=== PATIENT | female | born 1995 | race African-American/Black ===

== ENCOUNTER 2020-04-04 07:03 | Inpatient (IN) | payer MEDICAID ==
[2020-04-04] MEDS ORDERED: RINGERS SOLUTION,LACTATED 1,000 ML IV PRN (07:26)
[2020-04-04] MEDS ORDERED: OXYTOCIN/0.9 % SODIUM CHLORIDE 30 UNIT/500 ML RTUINJ IV PRN (07:31)
[2020-04-04] MEDS ORDERED: LIDOCAINE 1% INJ-PF (10 MG/ML) 30 ML SDV ONE (08:21)
[2020-04-04] MEDS ORDERED: OXYTOCIN/0.9 % SODIUM CHLORIDE 30 UNIT/500 ML RTUINJ ONE (08:21)
[2020-04-04] MEDS ORDERED: MISOPROSTOL 0.2 MG TABLET ONE (08:21)
[2020-04-04] MEDS ORDERED: OXYTOCIN 10 UNIT/ML VIAL ONE (08:21)
[2020-04-04] MEDS ORDERED: PENICILLIN G-K 5 MILLION UNIT VIAL ONE (08:28)
[2020-04-04] MEDS ORDERED: PENICILLIN G POTASSIUM 5,000,000 UNIT in DEXTROSE 5%-WATER 100 ML IV ONE (08:30)
[2020-04-04 08:32] LABS: ABSOLUTE EOSINOPHILS # (AUTO) 0.1 10^3/uL (0.0-0.6); ABSOLUTE LYMPHOCYTES (AUTO) 2.1 10^3/uL (0.5-4.7); ABSOLUTE MONOCYTES (AUTO) 0.8 10^3/uL (0.1-1.4); ABSOLUTE NEUT (AUTO) 7.1 10^3/uL (1.7-8.2); BASOPHILS % (AUTO) 0.4 % (0-2); EOSINOPHILS % (AUTO) 0.7 % (0-6); HEMATOCRIT 32.2 % (36.0-47.0); HEMOGLOBIN 11.1 g/dL (12.0-15.5); MEAN CORPUSCULAR HEMOGLOBIN 29.7 pg (27.0-33.4); MEAN CORPUSCULAR HGB CONC 34.5 g/dL (32.0-36.0); MEAN CORPUSCULAR VOLUME 86 fl (80-97); MONOCYTES % (AUTO) 7.6 % (3-13); PLATELET COUNT 151 10^3/uL (150-450); RED BLOOD COUNT 3.74 10^6/uL (3.72-5.28); SEGMENTED NEUTROPHILS % (AUTO) 70.3 % (42-78); TOTAL CELLS COUNTED % (AUTO) 100 %; WHITE BLOOD COUNT 10.1 10^3/uL (4.0-10.5)
[2020-04-04 08:33] LABS: APPEARANCE,URINE CLEAR; BILIRUBIN,URINE NEGATIVE (NEGATIVE); COLOR,URINE STRAW; GLUCOSE, URINE NEGATIVE (NEGATIVE); KETONES,URINE NEGATIVE (NEGATIVE); LEUKOCYTE ESTERASE,URINE NEGATIVE (NEGATIVE); NITRITE,URINE NEGATIVE (NEGATIVE); PROTEIN,URINE NEGATIVE (NEGATIVE); URINE SPECIFIC GRAVITY 1.006; UROBILINOGEN,URINE NEGATIVE mg/dL (<2.0)
[2020-04-04 08:51] LABS: URINE AMPHETAMINES SCREEN NEGATIVE; URINE BARBITURATES SCREEN NEGATIVE; URINE BENZODIAZEPINES SCREEN NEGATIVE; URINE COCAINE SCREEN NEGATIVE; URINE MARIJUANA (THC) SCREEN NEGATIVE; URINE METHADONE SCREEN NEGATIVE; URINE PHENCYCLIDINE SCREEN NEGATIVE
--- NOTE | 2020-04-04 09:03 | Non Stress Test Report ---
Non Stress Test Datetime Report Generated by CPN: 04/04/2020 09:02 DEMOGRAPHIC EGA NST: 38.2 VITAL SIGNS Temperature - NST: 97.5 Pulse - NST: 88 RESP - NST: 17 NBPSYS NST: 136 NBPDIA NST: 82 MONITORING Monitor Explained: Monitor Explained; Test Explained; Patient Verbalized Understanding Time on Monitor: 04/04/2020 08:00 Time off Monitor: 04/04/2020 08:30 NST Duration: 30 NST INTERVENTIONS NST Interventions: None Physician Notified NST: K. Brumfield, CNM BABY A: [id number] BABY A Movement : Present Contraction Frequency : x1 FHR Baseline : 125 Accelerations : 15X15 Decelerations : None Variability : Moderate 6-25bpm NST Review: Meets Criteria for Reactive NST NST Review and Verified By : Patricia Camp RNC NST Results: Reactive NST REPORT Report Trigger: Send Report
[2020-04-04 09:14] LABS: ALBUMIN 3.2 g/dL (3.5-5.0); ALKALINE PHOSPHATASE 158 U/L (38-126); ANION GAP 12 (5-19); ASPARTATE AMINO TRANSFERASE 22 U/L (14-36); BILIRUBIN,DIRECT 0.2 mg/dL (0.0-0.4); BILIRUBIN,TOTAL 0.9 mg/dL (0.2-1.3); BLOOD UREA NITROGEN 8 mg/dL (7-20); CALCIUM 8.9 mg/dL (8.4-10.2); CARBON DIOXIDE 15 mmol/L (22-30); CHLORIDE 108 mmol/L (98-107); GLUCOSE 146 mg/dL (75-110); TOTAL PROTEIN 6.5 g/dL (6.3-8.2)
[2020-04-04 10:40] LABS: UR PRO/CREAT RATIO RESULT 0.4 mg/mg (0.0-0.2); URINE PROTEIN 13.1 mg/dL (<12)
[2020-04-04] MEDS ORDERED: PENICILLIN G POTASSIUM 2,500,000 UNIT in DEXTROSE 5%-WATER 50 ML IV SCH (12:30)
--- NOTE | 2020-05-09 10:55 | PDOC PROGRESS REPORT ---
Subjective-OB Progress Note for:: 04/04/20 - Pt here for NST Physical Exam (OB) - General General Appearance: Appears well, Alert In distress: None - Maternal Morbidity 59. Maternal Morbidity (serious complications experinced by the mother associated with labor and delivery: None of the above Objective-Diagnostic Laboratory: 04/04/20 07:50 04/04/20 07:50 Assessment and Plan(PN) - Assessment and Plan (1) NST (non-stress test) reactive Is this a current diagnosis for this admission?: Yes Plan:: d/c home. F/up with [facility] - Time Spent with Patient Time with patient: Less than 15 minutes Medications reviewed and adjusted accordingly: No - Disposition Anticipated Discharge Disposition: Home, Self Care Anticipated Discharge Timeframe: within 24 hours
--- NOTE | 2020-05-12 15:01 | PDOC DISCHARGE SUMMARY ---
Impression - Admit/DC Date/PCP Admission Date/Primary Care Provider: 04/04/20 07:03 GARETT NOVAK MD Discharge Date: 04/04/20 - Discharge Diagnosis (1) Gestational [-induced] hypertension without significant proteinuria, complicating childbirth Is this a current diagnosis for this admission?: Yes - Assessment Summary: BPs in mild range, no significant protein in urine, rec del 39th wk unless pre E, pt sent home with 24*urine to return - Additional Information Resuscitation Status: Full Code Discharge Diet: Regular Discharge Activity: Balance Activity w/Rest Referrals: GARETT NOVAK MD [Primary Care Provider] - Home Medications: Prenat 115/Iron Fum/Folic/Dss [ 19 Tablet] 1 each PO DAILY 04/04/20 Ibuprofen [Motrin 800 mg Tablet] 800 mg PO Q8 #60 tablet 04/08/20 History of Present Illiness History of Present Illness: KEN CEJA is a 25 year old female Results Laboratory Results: WBC 10.1 10^3/uL (4.0-10.5) 04/04/20 07:50 RBC 3.74 10^6/uL (3.72-5.28) 04/04/20 07:50 Hgb 11.1 g/dL (12.0-15.5) L 04/04/20 07:50 Hct 32.2 % (36.0-47.0) L 04/04/20 07:50 MCV 86 fl (80-97) 04/04/20 07:50 MCH 29.7 pg (27.0-33.4) 04/04/20 07:50 MCHC 34.5 g/dL (32.0-36.0) 04/04/20 07:50 RDW 16.0 % (11.5-14.0) H 04/04/20 07:50 Plt Count 151 10^3/uL (150-450) 04/04/20 07:50 Lymph % (Auto) 21.0 % (13-45) 04/04/20 07:50 [place] % (Auto) 7.6 % (3-13) 04/04/20 07:50 Eos % (Auto) 0.7 % (0-6) 04/04/20 07:50 Baso % (Auto) 0.4 % (0-2) 04/04/20 07:50 Absolute Neuts (auto) 7.1 10^3/uL (1.7-8.2) 04/04/20 07:50 Absolute Lymphs (auto) 2.1 10^3/uL (0.5-4.7) 04/04/20 07:50 Absolute Monos (auto) 0.8 10^3/uL (0.1-1.4) 04/04/20 07:50 Absolute Eos (auto) 0.1 10^3/uL (0.0-0.6) 04/04/20 07:50 Absolute Basos (auto) 0.0 10^3/uL (0.0-0.2) 04/04/20 07:50 Seg Neutrophils % 70.3 % (42-78) 04/04/20 07:50 Sodium 134.9 mmol/L (137-145) L 04/04/20 07:50 Potassium 4.0 mmol/L (3.6-5.0) 04/04/20 07:50 Chloride 108 mmol/L (98-107) H 04/04/20 07:50 Carbon Dioxide 15 mmol/L (22-30) L 04/04/20 07:50 Anion Gap 12 (5-19) 04/04/20 07:50 BUN 8 mg/dL (7-20) 04/04/20 07:50 Creatinine 0.64 mg/dL (0.52-1.25) 04/04/20 07:50 Est GFR ( Amer) > 60 (>60) 04/04/20 07:50 Est GFR (MDRD) Non-Af > 60 (>60) 04/04/20 07:50 Glucose 146 mg/dL (75-110) H 04/04/20 07:50 Uric Acid 7.0 mg/dL (2.5-6.2) H 04/04/20 07:50 Calcium 8.9 mg/dL (8.4-10.2) 04/04/20 07:50 Total Bilirubin 0.9 mg/dL (0.2-1.3) 04/04/20 07:50 Direct Bilirubin 0.2 mg/dL (0.0-0.4) 04/04/20 07:50 Neonat Total Bilirubin Not Reportable 04/04/20 07:50 Neonat Direct Bilirubin Not Reportable 04/04/20 07:50 Neonat Indirect Bili Not Reportable 04/04/20 07:50 AST 22 U/L (14-36) 04/04/20 07:50 ALT 11 U/L (<35) 04/04/20 07:50 Alkaline Phosphatase 158 U/L (38-126) H 04/04/20 07:50 Lactate Dehydrogenase 202 U/L (120-246) 04/04/20 07:50 Total Protein 6.5 g/dL (6.3-8.2) 04/04/20 07:50 Albumin 3.2 g/dL (3.5-5.0) L 04/04/20 07:50 Urine Color STRAW 04/04/20 07:35 Urine Appearance CLEAR 04/04/20 07:35 Urine pH 6.0 (5.0-9.0) 04/04/20 07:35 Ur Specific [place] 1.006 04/04/20 07:35 Urine Protein NEGATIVE mg/dL (NEGATIVE) 04/04/20 07:35 Urine Glucose (UA) NEGATIVE mg/dL (NEGATIVE) 04/04/20 07:35 Urine Ketones NEGATIVE mg/dL (NEGATIVE) 04/04/20 07:35 Urine Blood NEGATIVE (NEGATIVE) 04/04/20 07:35 Urine Nitrite NEGATIVE (NEGATIVE) 04/04/20 07:35 Urine Bilirubin NEGATIVE (NEGATIVE) 04/04/20 07:35 Urine Urobilinogen NEGATIVE mg/dL (<2.0) 04/04/20 07:35 Ur Leukocyte Esterase NEGATIVE (NEGATIVE) 04/04/20 07:35 Urine Creatinine 33.0 mg/dL (16-327) 04/04/20 09:30 Protein/Creatinin Ratio 0.4 mg/mg (0.0-0.2) H 04/04/20 09:30 Urine Total Protein 13.1 mg/dL (<12) H 04/04/20 09:30 Urine Ascorbic Acid NEGATIVE (NEGATIVE) 04/04/20 07:35 Urine Opiates Screen NEGATIVE 04/04/20 07:35 Urine Methadone Screen NEGATIVE 04/04/20 07:35 Ur Barbiturates Screen NEGATIVE 04/04/20 07:35 Ur Phencyclidine Scrn NEGATIVE 04/04/20 07:35 Ur Amphetamines Screen NEGATIVE 04/04/20 07:35 U Benzodiazepines Scrn NEGATIVE 04/04/20 07:35 Urine Cocaine Screen NEGATIVE 04/04/20 07:35 U Marijuana (THC) Screen NEGATIVE 04/04/20 07:35 RPR NONREACTIVE (NONREACTIVE) 04/04/20 07:50 Blood Type B POSITIVE 04/04/20 07:50 Antibody Screen NEGATIVE 04/04/20 07:50 Plan Plan of Treatment: f/u with 24Hr urine, induce labor if protein elevated Stroke Is this a Stroke Patient?: No Acute Heart Failure Is this a Heart Failure Patient?: No
== END 2020-04-04 11:23 | disposition home or self-care (01) | DRG 833 ==
LOC: LR 07:03
PROVIDERS: ADMIT Obstetrics & Gynecology; ATTEND Obstetrics & Gynecology
DX: O24.419 Gestational diabetes mellitus in pregnancy, unspecified control (principal); Z3A.38 38 weeks gestation of pregnancy
CPT/HCPCS: 36415; 80053; 80307; 81005; 82570; 83615; 84156; 84550; 85025; 86592; 86850; 86900; 86901; J2540; J2590; J3490; J7060

== ENCOUNTER 2020-04-05 13:17 | Inpatient (IN) | payer MEDICAID ==
[2020-04-05 15:06] LABS: 24 HOUR URINE PROTEIN RESULT 469 mg/day (42-225); URINE PROTEIN 11.5 mg/dL (<12)
[2020-04-05] MEDS ORDERED: PENICILLIN G POTASSIUM 5,000,000 UNIT in DEXTROSE 5%-WATER 100 ML IV ONE (16:18)
[2020-04-05] MEDS ORDERED: MISOPROSTOL 0.1 MG TABLET PV ONE (16:21)
[2020-04-05] MEDS ORDERED: OXYTOCIN/0.9 % SODIUM CHLORIDE 30 UNIT/500 ML RTUINJ IV PRN (16:41)
--- NOTE | 2020-04-05 16:50 | Admission Physical ---
Datetime Report Generated by CPN: 04/05/2020 16:50 CURRENT ADMISSION Chief Complaint: Other Chief Complaint Other: pt back for 24h urine result Indication for Induction: PreEclampsia Admit Impression : Term, Intrauterine Admit Plan: Admit to Unit; Initiate Labor Induction Protocol ALLERGIES Medication Allergies: No Medication Allergies: No Known Allergies (04/04/2020) Latex: No Latex Allergies OBSTETRICAL HISTORY EDC: 04/16/2020 00:00 : 2 Para: 1 Term: 1 : 0 SAB: 0 IAB: 0 Ectopic: 0 Livin Cesareans: 0 VBACs: 0 Multiple Births: 0 Gestational Diabetes: No Rh Sensitization: No Incompetent Cervix: No DIANN: No Infertility: No ART Treatment: No Uterine Anomaly: No IUGR: No Hx Previous C/S: No Macrosomia: No Hx Loss/Stillborn: No PIH: Yes Hx : No Placenta Previa/Abruption: No Depression/PP Depression: No PTL/PROM: No Post Hemorrhage: No Current Procedures: Ultrasound; NST Obstetrical History Comments: G1 - 04/21/2016 - Full Term G2 - Current SEE RECORDS Alcohol: No Marijuana : No Cocaine: No Other Illicit Drugs: No Cigarettes: Never Smoker. [id number] MEDICAL HISTORY Diabetes: No Blood Transfusion: No Pulmonary Disease (Asthma, TB): No Breast Disease: No Hypertension: No Avionics Installer Surgery: No Heart Disease: No Hosp/Surgery: No Autoimmune Disorder: No Anesthetic Complications: No Kidney Disease: No Abnormal Pap Smear: No Neuro/Epilepsy: No Psychiatric Disorders: No Other Medical Diseases: No Hepatitis/Liver Disease: No Significant Family History: No Varicosities/Phlebitis: No Trauma/Violence : No Thyroid Dysfunction: No INFECTIOUS HISTORY Gonorrhea: No Genital Herpes: No Chlamydia: No Tuberculosis: No Syphilis: No Hepatitis: No HIV/AIDS Exposure: No Rash or Viral Illness: No HPV: No PHYSICAL EXAM General: Normal HEENT: Normal Neurologic: Normal Thyroid: Deferred Heart: Normal Lungs: Normal Breast: Deferred Back: Normal Abdomen: Normal Genitourinary Exam: Normal Extremities: Normal DTRs: Deferred Pelvic Type: Adequate Physical Exam Comments: pelvis proven to 7#10 Vital Signs: Reviewed Details Vital Signs: mild range elevated BPs VAGINAL EXAM Dilatation: 3 Effacement: 40 Station: -2 Contraction Comments: rare MEMBRANES Pooling: Negative Membranes: Intact FETUS A EGA: 38.3 Monitoring: External US FHR- Baseline: 130 Variability: Moderate 6-25bpm Accelerations: 15X15 Decelerations: None FHR Category: Category I Estimated Weight (gm): 3200 Presentation: Vertex Admit Comment: at 38w3d returned for 24h urine [id number] with elevated BPs, previous 24h urine, in October was 252. hx hsv with no outbreak for months. speculum exam neg, taking valtrex 1gm daily with no prodromal sx. CHTN, GBS pos; P: admit, penicillin for GBS prophylaxis, pitocin, anticipate PLANS FOR LABOR AND DELIVERY Labor and Delivery: None Pain Management: Natural; Medications Feeding Preference: Breast Benefit of Breast Feed Discussed: Yes Circumcision: Yes INFORMED CONSENT Assignment: Kathy Hurtado MD Signature: with User ID: [email or web address] : with User ID: [email or web address]
[2020-04-05] MEDS: RINGERS SOLUTION,LACTATED 1,000 ML IV PRN (17:40)
[2020-04-05 18:02] LABS: ABSOLUTE EOSINOPHILS # (AUTO) 0.1 10^3/uL (0.0-0.6); ABSOLUTE LYMPHOCYTES (AUTO) 1.7 10^3/uL (0.5-4.7); ABSOLUTE MONOCYTES (AUTO) 0.6 10^3/uL (0.1-1.4); ABSOLUTE NEUT (AUTO) 5.9 10^3/uL (1.7-8.2); BASOPHILS % (AUTO) 0.6 % (0-2); EOSINOPHILS % (AUTO) 0.6 % (0-6); HEMATOCRIT 34.8 % (36.0-47.0); HEMOGLOBIN 11.6 g/dL (12.0-15.5); LYMPHOCYTES % (AUTO) 20.8 % (13-45); MEAN CORPUSCULAR HEMOGLOBIN 28.8 pg (27.0-33.4); MEAN CORPUSCULAR HGB CONC 33.2 g/dL (32.0-36.0); MEAN CORPUSCULAR VOLUME 87 fl (80-97); MONOCYTES % (AUTO) 7.3 % (3-13); PLATELET COUNT 137 10^3/uL (150-450); RED BLOOD COUNT 4.03 10^6/uL (3.72-5.28); RED CELL DISTRIBUTION WIDTH 16.1 % (11.5-14.0); SEGMENTED NEUTROPHILS % (AUTO) 70.7 % (42-78); TOTAL CELLS COUNTED % (AUTO) 100 %; WHITE BLOOD COUNT 8.4 10^3/uL (4.0-10.5)
[2020-04-05] MEDS ORDERED: OXYTOCIN 10 UNIT/ML VIAL ONE (18:13)
[2020-04-05] MEDS ORDERED: OXYTOCIN/0.9 % SODIUM CHLORIDE 30 UNIT/500 ML RTUINJ ONE (18:13)
[2020-04-05] MEDS ORDERED: PENICILLIN G-K 5 MILLION UNIT VIAL ONE ×2 (18:13→23:39)
[2020-04-05] MEDS ORDERED: LIDOCAINE 1% INJ-PF (10 MG/ML) 30 ML SDV ONE (18:13)
[2020-04-05] MEDS ORDERED: MISOPROSTOL 0.2 MG TABLET ONE (18:13)
[2020-04-05 18:22] LABS: ALBUMIN 3.2 g/dL (3.5-5.0); ALKALINE PHOSPHATASE 171 U/L (38-126); ANION GAP 6 (5-19); ASPARTATE AMINO TRANSFERASE 21 U/L (14-36); BILIRUBIN,TOTAL 0.7 mg/dL (0.2-1.3); BLOOD UREA NITROGEN 5 mg/dL (7-20); CALCIUM 8.9 mg/dL (8.4-10.2); CARBON DIOXIDE 19 mmol/L (22-30); CHLORIDE 110 mmol/L (98-107); GLUCOSE 82 mg/dL (75-110); POTASSIUM 4.3 mmol/L (3.6-5.0); TOTAL PROTEIN 6.9 g/dL (6.3-8.2); URIC ACID 7.1 mg/dL (2.5-6.2)
[2020-04-05] MEDS ORDERED: LABETALOL HCL INJ 20 MG/4 ML DISP.SYRIN IV ONE ×2 (20:00→20:06)
[2020-04-05] MEDS: PENICILLIN G POTASSIUM 2,500,000 UNIT in DEXTROSE 5%-WATER 50 ML IV SCH (23:44)
[2020-04-06] MEDS ORDERED: PENICILLIN G-K 5 MILLION UNIT VIAL ONE ×2 (03:06→06:45)
[2020-04-06] MEDS: PENICILLIN G POTASSIUM 2,500,000 UNIT in DEXTROSE 5%-WATER 50 ML IV SCH ×3 (03:11→14:36)
[2020-04-06] MEDS: RINGERS SOLUTION,LACTATED 1,000 ML IV PRN (03:12)
[2020-04-06] MEDS ORDERED: FENTANYL CITRATE INJ/PF 100 MCG/2 ML AMPUL ONE (10:15)
[2020-04-06] MEDS ORDERED: FENTANYL CITRATE INJ/PF 100 MCG/2 ML AMPUL IV ONE (10:18)
[2020-04-06] MEDS ORDERED: EPHEDRINE SULFATE INJ 50 MG/1 ML AMPULE ONE (11:48)
[2020-04-06] MEDS ORDERED: FENTANYL/BUPIVACAINE/NS/PF 300 MCG/150 ML RTUINJ EPI ONE (11:49)
[2020-04-06] MEDS ORDERED: ROPIVACAINE HCL 0.2% INJ/PF (2 MG/ML) 20 ML SDV ONE (11:49)
[2020-04-06 12:21] LABS: HEMATOCRIT 32.9 % (36.0-47.0); HEMOGLOBIN 11.3 g/dL (12.0-15.5); MEAN CORPUSCULAR HEMOGLOBIN 29.5 pg (27.0-33.4); MEAN CORPUSCULAR HGB CONC 34.3 g/dL (32.0-36.0); MEAN CORPUSCULAR VOLUME 86 fl (80-97); PLATELET COUNT 130 10^3/uL (150-450); RED BLOOD COUNT 3.83 10^6/uL (3.72-5.28); RED CELL DISTRIBUTION WIDTH 15.9 % (11.5-14.0); WHITE BLOOD COUNT 9.7 10^3/uL (4.0-10.5)
[2020-04-06] MEDS ORDERED: OXYTOCIN/0.9 % SODIUM CHLORIDE 30 UNIT/500 ML RTUINJ IV PRN (13:50)
[2020-04-06] MEDS ORDERED: ACETAMINOPHEN WITH CODEINE #3 TABLET PO PRN (13:50)
[2020-04-06] MEDS ORDERED: PSEUDOEPHEDRINE HCL 30 MG TABLET PO PRN (13:50)
[2020-04-06] MEDS ORDERED: DIPH/PERTUSS(ACELL)/TETANUS VAC/PF 0.5 ML SYR (>=10YO) IM PRN (13:50)
[2020-04-06] MEDS ORDERED: MEASLES,MUMPS&RUBELLA VACC/PF 0.5 ML VIAL SUBCUT PRN (13:50)
[2020-04-06] MEDS ORDERED: ACETAMINOPHEN 650 MG SUPP.RECT PR PRN (13:50)
[2020-04-06] MEDS ORDERED: DIPHENHYDRAMINE HCL 25 MG CAPSULE PO PRN (13:50)
[2020-04-06] MEDS ORDERED: NA PHOS,M-B/NA PHOS,DI-BA (ADULT) 133 ML ENEMA PR PRN (13:50)
[2020-04-06] MEDS ORDERED: ZOLPIDEM TARTRATE 5 MG TABLET PO PRN (13:50)
[2020-04-06] MEDS ORDERED: DIBUCAINE 1% OINTMENT 28 GM TP PRN (13:50)
[2020-04-06] MEDS ORDERED: PROMETHAZINE HCL INJ 25 MG/1 ML VIAL IV PRN (13:50)
[2020-04-06] MEDS ORDERED: PROMETHAZINE HCL 25 MG TABLET PO PRN (13:50)
[2020-04-06] MEDS ORDERED: BENZOCAINE/MENTHOL AEROSOL SPRAY 56 ML TOP PRN (13:50)
[2020-04-06] MEDS ORDERED: PROMETHAZINE HCL 25 MG SUPP.RECT PR PRN (13:50)
[2020-04-06] MEDS ORDERED: GLYCERIN/WITCH HAZEL LEAF 1 EACH MED..WIPE TP PRN (13:50)
[2020-04-06] MEDS ORDERED: MAGNESIUM HYDROXIDE SUSP 30 ML UDCUP PO PRN (13:50)
[2020-04-06] MEDS ORDERED: IBUPROFEN 800 MG TABLET ONE (14:40)
[2020-04-06] MEDS ORDERED: BENZOCAINE/MENTHOL AEROSOL SPRAY 56 ML ONE (14:40)
[2020-04-06] MEDS: IBUPROFEN 800 MG TABLET PO SCH ×2 (14:43→22:09)
--- NOTE | 2020-04-06 15:26 | Delivery Summary ---
Del Sum A-C Datetime Report Generated by CPN: 04/06/2020 15:26 DELIVERY PERSONNEL DELIVERY PERSONNEL: [id number] Delivery Doctor:: Jones Palencia MD Labor and Delivery Nurse:: Karen Boston RN Nursery Nurse:: Harriet Peck RN Nursery Nurse:: Paloma Hansen RN Junior Project Coordinator/TIRE CENTER SUPERVISOR: Yeny Durant, ST Additional Personnel: : Diana Seymour RN MATERNAL INFORMATION Delivery Anesthesia: Epidural Medications After Delivery: Pitocin Bolus-Please Comment; Pitocin 30 Units in 500ml NS/D5W Delivery QBL: 20 Maternal Complications: None LABOR SUMMARY EDC: 04/16/2020 00:00 No. Babies in Womb: 1 Attempted: No Labor Anesthesia: Epidural LABOR INFORMATION Reason for Induction: Chronic Primary/Essential HTN; Pre-Eclampsia; Maternal Diabetes Onset of Labor: 04/06/2020 10:09 Complete Dilatation: 04/06/2020 13:26 Oxytocin: Induction Group B Beta Strep: Positive Antibiotics # of Doses: 5 Antibiotics Time of Last Dose: 04/06/2020 10:29 Name of Antibiotic Given: Penicillin Steroids Given: None Reason Steroids Not Administered: Not Applicable MEMBRANES Membranes Rupture Method: Artificial Rupture of Membranes: 04/06/2020 07:31 Length of Rupture (hr): 6.10 Amniotic Fluid Color: Moderate Meconium Amniotic Fluid Amount: Large Amniotic Fluid Odor: Normal STAGES OF LABOR Stage 1 hr: 3 Stage 1 min: 17 Stage 2 hr: 0 Stage 2 min: 11 Stage 3 hr: 0 Stage 3 min: 4 Total Time in Labor hr: 3 Total Time in Labor min: 32 VAGINAL DELIVERY Episiotomy: None Laceration #1: None Laceration Extension #1: N/A Laceration Repair: Not Applicable Sponge Count Correct: N/A Sharps Count Correct: N/A CSECTION DELIVERY Primary Indication: N/A Secondary Indication: N/A CSection Incision: N/A BABY A INFORMATION Delivery Date/Time: 04/06/2020 13:37 Method of Delivery: Vaginal Nurse Controlled Delivery: No Born in Route : No : N/A Forceps: N/A Vacuum Extraction: N/A Shoulder Dystocia : No PRESENTATION/POSITION BABY A Presentation: Cephalic Cephalic Presentation: Vertex Vertex Position: Left Occipital Anterior Breech Presentation: N/A PLACENTA INFORMATION BABY A Placenta Delivery Time : 04/06/2020 13:41 Placenta Method of Delivery: Spontaneous Placenta Status: Delivered SCORES BABY A Heart Rate 1 min: >100 bpm Resp Effort 1 min: Good Cry Reflex Irritability 1 min: Cough or Sneeze or Pulls Away Muscle Tone 1 min: Active Motion Color 1 min: Body [place], Extremities Blue SCORE 1 MIN: 9 Heart Rate 5 min: >100 bpm Resp Effort 5 min: Good Cry Reflex Irritability 5 min: Cough or Sneeze or Pulls Away Muscle Tone 5 min: Active Motion Color 5 min: Body [place], Extremities Blue SCORE 5 MIN: 9 INFANT INFORMATION BABY A Gestational Age at Delivery: 38.4 Gestational Status: Early Term- 37- 38.6 Weeks Infant Outcome : Liveborn Condition : Stable Sex: Male IDENTIFICATION BABY A Infant Verification Date/Time: 04/06/2020 13:52 ID Band Number: [id number] Mother's Name Verified: Yes RN Verifying Infant: Corina Ari[place]SMI[place] de la fuente Additional Verifying Personnel: Cuong Bales RN WEIGHT/LENGTH BABY A Infant Birthweight (gm): 3681 Weight (lb): 8 Infant Weight (oz): 2 Infant Length (in): 19.50 Length (cm): 49.53 CORD INFORMATION BABY A No. Cord Vessels: 3 Nuchal Cord : N/A Cord Blood Taken: Yes-For Storage (Mom's Blood type +) Infant Suction: None ASSESSMENT BABY A Infant Complications: None Physical Findings at Delivery: Within Normal Limits Infant Respirations: Appears Normal Skin to Skin: Yes Skin to Skin Time (min): 60 Senior Peoplesoft Developer/ALS Called : No Infant Care By: Nursery RN Transferred To: Remains with Mother BABY B INFORMATION : N/A SIGNATURES Signature: with User ID: [email or web address] : I was personally available for consultation and serving as supervising physician for the MLP.
--- NOTE | 2020-04-06 15:26 | Birth Certificate Data ---
Cert Data Datetime Report Generated by CPN: 04/06/2020 15:26 CERTIFICATE DATA Delivery Provider: Jones Palencia MD (04/04/2020 07:44:Jones Palencia MD (WEB)) 47a. Care: Yes (04/04/2020 07:44:MARLY Abraham) 47b. Date of First Visit: 10/07/2019 00:00 (04/04/2020 07:44:Renetta Lua RN) 47c. Date of Last Visit: 04/01/2020 00:00 (04/04/2020 07:44:Renetta Lua RN) 47d. Number of Visits: 13 (04/04/2020 07:44:Renetta Lua RN) 48a. Number of Prev Live Births: 1 (04/04/2020 07:44:Renetta Lua RN) 48b. Now Livin (04/04/2020 07:44:Renetta Lua RN) 48c. Live Births Now : 0 (04/04/2020 07:44:QS system process) 48e. Losses: 0 (04/04/2020 07:44:Renetta Lua RN) RISK FACTORS IN THIS 49a. Diabetes: Yes (04/04/2020 07:44:Karen Boston RN) Type of Diabetes: Gestational Diabetes (04/04/2020 07:44:Karen Boston RN) 49b. Hypertension: Yes (04/04/2020 07:44:Karen Boston RN) Type of Hypertension: Chronic (04/04/2020 07:44:Karen Boston RN) 49c. Previous Births: 0 (04/04/2020 07:44:Renetta Lua RN) 49d. Stillborns: No (04/04/2020 07:44:Renetta Lua RN) 49d. IUGR: No (04/04/2020 07:44:Renetta Lua RN) 49e. Infertility Treatment: No (04/04/2020 07:44:Renetta Lua RN) 49f. Previous Cesareans: 0 (04/04/2020 07:44:Renetta Lua RN) Mother's Height 50b. Height Inches: 67 (04/06/2020 12:12:QS system process) Mother's Weight 51a. Pre- Weight (lbs): 258 (04/04/2020 07:44:Karen Boston RN) 51b. Weight at Delivery (lbs): 282 (04/06/2020:12:QS system process) Infections Present/Treated 53a. Gonorrhea: No (04/04/2020 07:44:Renetta Lua RN) Results this Hospital Visit : Negative (04/04/2020 07:44:Renetta Lua RN) 53b. Syphilis: No (04/04/2020 07:44:Renetta Lua RN) Results this Hospital Visit: NONREACTIVE (04/05/2020 17:24:QS system process) 53c. Chlamydia: No (04/04/2020 07:44:Renetta Lua RN) Results this Hospital Visit: Negative (04/04/2020 07:44:Renetta Lua RN) 53d. Hepatitis B: No (04/04/2020 07:44:Renetta Lua RN) Results this Hospital Visit: Negative (04/04/2020 07:44:Renetta Lua RN) 53e. Hepatitis C: Negative (04/04/2020 07:44:Renetta Lua RN) 53h. Mother Tested for HBsAG: Yes (04/04/2020 07:44:Renetta Lua RN) 53i. Date Tested: 10/07/2019 00:00 (04/04/2020 07:44:Karen Boston RN) 53j. Test Result: Negative (04/04/2020 07:44:Renetta Lua RN) Obstetric Procedures 54a, b, c. Obstetric Procedures: Ultrasound; NST (04/04/2020 07:44:Renetta Lua RN) Cigarette Smoking Cigarette Smoking: Never Smoker. [id number] (04/04/2020 07:44:Renetta Lua RN) 55a. 3 Months Before Preg - Ci (04/04/2020 07:44:Renetta Lua RN) 55a. Packs: 0 (04/04/2020 07:44:Renetta Lua RN) 55b. 1st Trimester of Preg- Ci (04/04/2020 07:44:Renetta Lua RN) 55b. Packs: 0 (04/04/2020 07:44:Renetta Lua RN) 55c. 2nd Trimester of Preg- Ci (04/04/2020 07:44:Renetta Lua RN) 55c. Packs: 0 (04/04/2020 07:44:Renetta Lua RN) 55d. 3rd Trimester of Preg- Ci (04/04/2020 07:44:Renetta Lua RN) 55d. Packs: 0 (04/04/2020 07:44:Renetta Lua RN) Onset of Labor 56a. PROM >12 Hrs: 6.10 (04/04/2020 07:44:QS system process) 56b. Precipitous Labor <3 Hrs: 3 (04/04/2020 07:44:QS system process) 56c. Prolonged Labor > 20 Hrs: 3 (04/04/2020 07:44:QS system process) 57a. Induction of Labor: Induction (04/04/2020 07:44:Karen Boston RN) 57c. Non-Vertex Presentation A: Vertex (04/04/2020 07:44:Karen Boston RN) 57d. Steroids - Lung Mat: None (04/04/2020 07:44:Karen Boston RN) 57d. Steroids - Lung Mat: Not Applicable (04/04/2020 07:44:Karen Boston RN) 57e. Antibiotics During Labor: 04/06/2020 10:29 (04/04/2020 07:44:Karen Boston RN) 57f. Mat [place] or Temp >100.4: 98.5 (04/04/2020 07:44:Karen Boston RN) 57g. Moderate/Heavy Meconium: Moderate Meconium (04/06/2020 10:09:Karen Boston RN) 57h. Intolerance of Labor: N/A (04/04/2020 07:44:Karen Boston RN) : N/A (04/04/2020 07:44:Karen Boston RN) 57i. Epidural/Spinal Anesthesia: Epidural (04/04/2020 07:44:Karen Boston RN) Method of Delivery 58a. Forceps - Unsuccessful A: N/A (04/04/2020 07:44:Karen Boston RN) 58b. Vacuum - Unsuccessful A: N/A (04/04/2020 07:44:Karen Boston RN) 58c. Presentation at 58c. Presentation at - A : Vertex (04/04/2020 07:44:Karen Boston RN) 58c. Presentation at - A : N/A (04/04/2020 07:44:Karen Boston RN) 58c. Presentation at - A : Cephalic (04/05/2020 16:34:Karen Boston RN) Final Route and Method of Del 58d. Baby A Route/Delivery: Vaginal (04/06/2020 13:37:Karen Boston RN) 58e. Trial of Labor Attempted: No (04/04/2020 07:44:Karen Boston RN) 58e. Trial of Labor Attempted A: N/A (04/04/2020 07:44:Karen Boston RN) 58e. Trial of Labor Attempted B: N/A (04/04/2020 07:44:Karen Boston RN) Maternal Morbidity 59b. 3rd or 4th Degree Lacs: None (04/04/2020 07:44:Jones Palencia, MD ([facility])) Birthweight Baby A: 3681 (04/04/2020 07:44:Harriet Peck RN) 60a. Pounds : 8 (04/04/2020 07:44:QS system process) 60b. Ounces: 2 (04/04/2020 07:44:QS system process) 61. GA at Delivery Baby A: 38.4 (04/04/2020 07:44:Karen Boston RN) : Early Term- 37- 38.6 Weeks (04/04/2020 07:44:QS system process) 62a. 5 Minute Baby A: 9 (04/04/2020 07:44:QS system process)
[2020-04-06] MEDS: DOCUSATE SODIUM 100 MG CAPSULE PO SCH (18:28)
[2020-04-06] MEDS: FERROUS SULFATE 325 MG TABLET PO SCH (18:28)
[2020-04-06] MEDS: FAMOTIDINE 20 MG TABLET PO SCH (22:10)
[2020-04-07] MEDS: IBUPROFEN 800 MG TABLET PO SCH ×3 (06:48→21:43)
[2020-04-07 08:02] LABS: HEMATOCRIT 31.4 % (36.0-47.0); HEMOGLOBIN 10.7 g/dL (12.0-15.5); MEAN CORPUSCULAR HEMOGLOBIN 29.7 pg (27.0-33.4); MEAN CORPUSCULAR HGB CONC 34.2 g/dL (32.0-36.0); MEAN CORPUSCULAR VOLUME 87 fl (80-97); PLATELET COUNT 115 10^3/uL (150-450); RED BLOOD COUNT 3.61 10^6/uL (3.72-5.28); RED CELL DISTRIBUTION WIDTH 16.1 % (11.5-14.0); WHITE BLOOD COUNT 9.7 10^3/uL (4.0-10.5)
[2020-04-07] MEDS: FERROUS SULFATE 325 MG TABLET PO SCH ×2 (09:46→17:28)
[2020-04-07] MEDS: SENNOSIDES/DOCUSATE 8.6-50 MG 1 EACH TABLET PO SCH (09:46)
[2020-04-07] MEDS: PRENATAL VITAMIN W DHA CAPSULE PO SCH (09:46)
[2020-04-07] MEDS: DOCUSATE SODIUM 100 MG CAPSULE PO SCH ×2 (09:46→17:28)
[2020-04-07] MEDS: FAMOTIDINE 20 MG TABLET PO SCH ×2 (09:46→21:43)
--- NOTE | 2020-04-07 14:25 | PDOC PROGRESS REPORT ---
Subjective-OB Progress Note for:: 04/07/20 Subjective: reports bleeding slowing, pain controlled with current meds. denies needs Physical Exam (OB) Vital Signs: Temp Pulse Resp BP Pulse Ox 97.6 F 70 19 139/75 H 100 04/07/20 11:19 04/07/20 11:19 04/07/20 11:19 04/07/20 11:19 04/07/20 11:19 Intake & Output 04/06/20 04/07/20 04/08/20 06:59 06:59 06:59 Intake Total 1000 300 Output Total 400 Balance 1000 300 -400 Weight 128.2 kg - PIH/Pre-Eclampsia DTR's: 2 + Clonus: Negative Headache: Absent Epigastric Pain: No Visual Changes: No - Maternal Morbidity 59. Maternal Morbidity (serious complications experinced by the mother associated with labor and delivery: None of the above - Lochia Lochia Amount: Scant < 10 ml Lochia Color: Rubra/Red - Abdomen Description: Tender, Soft Hernia Present: No Fundal Description: Firm, Midline Fundal Height: u/u - u/2 Objective-Diagnostic Laboratory: 04/07/20 06:34 04/05/20 17:24 04/07/20 06:34 WBC 9.7 RBC 3.61 L Hgb 10.7 L Hct 31.4 L MCV 87 MCH 29.7 MCHC 34.2 RDW 16.1 H Plt Count 115 L Assessment and Plan(PN) - Time Spent with Patient Time with patient: Less than 15 minutes Medications reviewed and adjusted accordingly: Yes - Disposition Anticipated Discharge Disposition: Home, Self Care Anticipated Discharge Timeframe: within 24 hours
[2020-04-08] MEDS: IBUPROFEN 800 MG TABLET PO SCH (05:36)
[2020-04-08 07:53] LABS: ABSOLUTE EOSINOPHILS # (AUTO) 0.1 10^3/uL (0.0-0.6); ABSOLUTE LYMPHOCYTES (AUTO) 1.9 10^3/uL (0.5-4.7); ABSOLUTE MONOCYTES (AUTO) 0.6 10^3/uL (0.1-1.4); ABSOLUTE NEUT (AUTO) 4.5 10^3/uL (1.7-8.2); BASOPHILS % (AUTO) 0.5 % (0-2); EOSINOPHILS % (AUTO) 1.1 % (0-6); HEMATOCRIT 29.4 % (36.0-47.0); LYMPHOCYTES % (AUTO) 26.9 % (13-45); MEAN CORPUSCULAR HEMOGLOBIN 29.5 pg (27.0-33.4); MEAN CORPUSCULAR HGB CONC 34.2 g/dL (32.0-36.0); MEAN CORPUSCULAR VOLUME 87 fl (80-97); MONOCYTES % (AUTO) 8.8 % (3-13); PLATELET COUNT 115 10^3/uL (150-450); RED CELL DISTRIBUTION WIDTH 16.2 % (11.5-14.0); SEGMENTED NEUTROPHILS % (AUTO) 62.7 % (42-78); TOTAL CELLS COUNTED % (AUTO) 100 %; WHITE BLOOD COUNT 7.2 10^3/uL (4.0-10.5)
[2020-04-08] MEDS: FERROUS SULFATE 325 MG TABLET PO SCH (09:48)
[2020-04-08] MEDS: SENNOSIDES/DOCUSATE 8.6-50 MG 1 EACH TABLET PO SCH (09:49)
[2020-04-08] MEDS: FAMOTIDINE 20 MG TABLET PO SCH (09:49)
[2020-04-08] MEDS: DOCUSATE SODIUM 100 MG CAPSULE PO SCH (09:49)
[2020-04-08] MEDS: PRENATAL VITAMIN W DHA CAPSULE PO SCH (09:49)
--- NOTE | 2020-04-08 10:27 | PDOC DISCHARGE SUMMARY ---
Impression - Admit/DC Date/PCP Admission Date/Primary Care Provider: 04/05/20 16:20 AMINATA ZABALA MD Discharge Date: 04/08/20 - PP day #2, doing well, denies headache, UOB voiding, B+ Rubella immune, - Discharge Diagnosis (1) Normal course Is this a current diagnosis for this admission?: Yes (2) Encounter for induction of labor Is this a current diagnosis for this admission?: Yes (3) Preeclampsia Is this a current diagnosis for this admission?: Yes - Additional Information Resuscitation Status: Full Code Discharge Diet: As Tolerated, Regular Discharge Activity: Activity As Tolerated, No Lifting Over 10 Pounds, Pelvic Rest Referrals: AMINATA ZABALA MD [Primary Care Provider] - Prescriptions: Ibuprofen [Motrin 800 mg Tablet] 800 mg PO Q8 #60 tablet Home Medications: Prenat 115/Iron Fum/Folic/Dss [ 19 Tablet] 1 each PO DAILY 04/04/20 Ibuprofen [Motrin 800 mg Tablet] 800 mg PO Q8 #60 tablet 04/08/20 HPI Reason(s) for Admission: Induction of Labor Admission Note: pre-eclampsia Procedures: Management of Obstetric Complications Intrapartum Procedure(s): Spontaneous Vaginal Delivery Hospital Course 59. Maternal Morbidity (serious complications experinced by the mother associated with labor and delivery: None of the above Results Laboratory Results: WBC 7.2 10^3/uL (4.0-10.5) 04/08/20 07:37 RBC 3.40 10^6/uL (3.72-5.28) L 04/08/20 07:37 Hgb 10.0 g/dL (12.0-15.5) L 04/08/20 07:37 Hct 29.4 % (36.0-47.0) L 04/08/20 07:37 MCV 87 fl (80-97) 04/08/20 07:37 MCH 29.5 pg (27.0-33.4) 04/08/20 07:37 MCHC 34.2 g/dL (32.0-36.0) 04/08/20 07:37 RDW 16.2 % (11.5-14.0) H 04/08/20 07:37 Plt Count 115 10^3/uL (150-450) L 04/08/20 07:37 Lymph % (Auto) 26.9 % (13-45) 04/08/20 07:37 [place] % (Auto) 8.8 % (3-13) 04/08/20 07:37 Eos % (Auto) 1.1 % (0-6) 04/08/20 07:37 Baso % (Auto) 0.5 % (0-2) 04/08/20 07:37 Absolute Neuts (auto) 4.5 10^3/uL (1.7-8.2) 04/08/20 07:37 Absolute Lymphs (auto) 1.9 10^3/uL (0.5-4.7) 04/08/20 07:37 Absolute Monos (auto) 0.6 10^3/uL (0.1-1.4) 04/08/20 07:37 Absolute Eos (auto) 0.1 10^3/uL (0.0-0.6) 04/08/20 07:37 Absolute Basos (auto) 0.0 10^3/uL (0.0-0.2) 04/08/20 07:37 Seg Neutrophils % 62.7 % (42-78) 04/08/20 07:37 Sodium 134.5 mmol/L (137-145) L 04/05/20 17:24 Potassium 4.3 mmol/L (3.6-5.0) 04/05/20 17:24 Chloride 110 mmol/L (98-107) H 04/05/20 17:24 Carbon Dioxide 19 mmol/L (22-30) L 04/05/20 17:24 Anion Gap 6 (5-19) 04/05/20 17:24 BUN 5 mg/dL (7-20) L 04/05/20 17:24 Creatinine 0.63 mg/dL (0.52-1.25) 04/05/20 17:24 Est GFR ( Amer) > 60 (>60) 04/05/20 17:24 Est GFR (MDRD) Non-Af > 60 (>60) 04/05/20 17:24 Glucose 82 mg/dL (75-110) 04/05/20 17:24 Uric Acid 7.1 mg/dL (2.5-6.2) H 04/05/20 17:24 Calcium 8.9 mg/dL (8.4-10.2) 04/05/20 17:24 Total Bilirubin 0.7 mg/dL (0.2-1.3) 04/05/20 17:24 Direct Bilirubin 0.0 mg/dL (0.0-0.4) 04/05/20 17:24 Neonat Total Bilirubin Not Reportable 04/05/20 17:24 Neonat Direct Bilirubin Not Reportable 04/05/20 17:24 Neonat Indirect Bili Not Reportable 04/05/20 17:24 AST 21 U/L (14-36) 04/05/20 17:24 ALT 10 U/L (<35) 04/05/20 17:24 Alkaline Phosphatase 171 U/L (38-126) H 04/05/20 17:24 Lactate Dehydrogenase 169 U/L (120-246) 04/05/20 17:24 Total Protein 6.9 g/dL (6.3-8.2) 04/05/20 17:24 Albumin 3.2 g/dL (3.5-5.0) L 04/05/20 17:24 Ur 24 Hour Volume 4080 mL 04/04/20 11:30 Ur Total Protein 24 Hr 469 mg/day (42-225) H 04/04/20 11:30 Urine Total Protein 11.5 mg/dL (<12) 04/04/20 11:30 RPR NONREACTIVE (NONREACTIVE) 04/05/20 17:24 Blood Type B POSITIVE 04/05/20 17:24 Antibody Screen NEGATIVE 04/05/20 17:24 Plan Plan of Treatment: d/c home, f/up for BP check in one week Time Spent: Less than 30 Minutes
[2020-04-08 11:17] VITALS: BP 140/72
== END 2020-04-08 12:13 | disposition home or self-care (01) | DRG 806 ==
LOC: LC 13:17 → LR 16:20 → 2S 04-06 15:37
PROVIDERS: ADMIT Obstetrics & Gynecology; ATTEND Obstetrics & Gynecology
PROC: 10E0XZZ Delivery of Products of Conception, External Approach (ICD-10-PCS; principal; 2020-04-06)
PROC: 10907ZC Drainage of Amniotic Fluid, Therapeutic from Products of Conception, Via Natural or Artificial Opening (ICD-10-PCS; 2020-04-06)
PROC: 3E033VJ Introduction of Other Hormone into Peripheral Vein, Percutaneous Approach (ICD-10-PCS; 2020-04-06)
DX: O11.4 Pre-existing hypertension with pre-eclampsia, complicating childbirth (principal); O98.52 Other viral diseases complicating childbirth; Z37.0 Single live birth; B00.9 Herpesviral infection, unspecified; O77.0 Labor and delivery complicated by meconium in amniotic fluid; Z3A.38 38 weeks gestation of pregnancy; Z79.899 Other long term (current) drug therapy
CPT/HCPCS: 1967; 36415; 80053; 83615; 84156; 84550; 85025; 85027; 86592; 86850; 86900; 86901; 94760; J2540; J2590; J2795; J3010; J3490; J7060